=== PATIENT | female | born 1945 | race Hispanic/Latino ===

== ENCOUNTER 2019-01-15 06:58 | Observation (INO) | payer OTHER, MEDICARE ==
[2019-01-09 13:44] LABS: BASOPHILS % (AUTO) 1.2 % (0.0-5.0); EOSINOPHILS % (AUTO) 5.4 % (0.0-8.0); HEMATOCRIT 31.3 % (36-48); LYMPHOCYTES % (AUTO) 23.2 % (21.0-51.0); MEAN CORPUSCULAR HEMOGLOBIN 29.1 pg (27.0-33.0); MEAN CORPUSCULAR HGB CONC 33.6 g/dL (32.0-36.0); MEAN CORPUSCULAR VOLUME 86.7 fL (79-99); MONOCYTES % (AUTO) 8.8 % (3.0-13.0); NEUTROPHILS % (AUTO) 61.4 % (40.0-77.0); NUCLEATED RED BLOOD CELLS 0.1 % (0.0-0.19); PLATELET COUNT (AUTO) 174 K/uL (130-400); RED BLOOD CELL COUNT(AUTO) 3.61 MIL/uL (4.00-5.50); RED CELL DISTRIBUTION WIDTH 13.9 % (11.0-15.5); WHITE BLOOD COUNT (AUTO) 5.7 K/uL (4.8-10.8)
[2019-01-09 13:52] LABS: CREATININE 1.1 mg/dL (0.5-1.5); POTASSIUM 5.2 mmol/L (3.5-5.1)
[2019-01-09 14:02] LABS: INR 1.01 (0.85-1.15); PARTIAL THROMBOPLASTIN TIME 26.7 SEC (26.3-35.5); PROTHROMBIN TIME 10.6 SEC (9.6-11.6)
[2019-01-09 14:20] VITALS: BP 142/62
--- NOTE | 2019-01-09 14:57 | NUR ---
SPOKE WITH MARY KAY ROSE REP AND IS AWARE OF ICD DUAL ON 01-13-19 Addendum: 01/14/19 at 1746 by LELO PETTY RN RN WRONG PT. INFO
[2019-01-10] MEDS: LACTATED RINGERS 1000ML 1,000 ML IV SCH (21:45)
--- NOTE | 2019-01-14 15:12 | NUR ---
labs abnormal labs faxed to dr. whatley per there request, message left with Meggan his nurse, awaiting for further orders
[~2019-01-15] VITALS: Ht 151.1 cm; Wt 84.3 kg
[2019-01-15] VITALS (23 sets, daily range): BP systolic 124–152; BP diastolic 56–93
[~2019-01-15 06:58] MED LIST: CEFAZOLIN SODIUM 1 GM VIAL IVP SCH; SODIUM CHLORIDE 0.9% IV SCH; TRANEXAMIC ACID IV SCH
[2019-01-15] MEDS: CEFAZOLIN SODIUM 1 GM VIAL ONE ×2 (08:28→10:00)
[2019-01-15] MEDS: LACTATED RINGERS 1000ML 1,000 ML IV SCH ×2 (08:34→12:00)
--- NOTE | 2019-01-15 09:00 | NUR ---
SKIN RIGHT INDEX FINGER NOTED WITH SMALL BANDAID, PT STATES HAS SMALLCUT, " CUT HERSELF COOKING". NO REDNESS OR DRAINAGE TO SITE
[2019-01-15] MEDS ORDERED: FURO40TA5 PO (09:06)
[2019-01-15] MEDS ORDERED: LEVO5TAB13 PO (09:06)
[2019-01-15] MEDS ORDERED: ZOLP10TA6 PO (09:06)
[2019-01-15] MEDS ORDERED: GABA-529 PO (09:06)
[2019-01-15] MEDS ORDERED: DULO30CA52 PO (09:06)
[2019-01-15] MEDS ORDERED: LINA5TAB PO (09:06)
[2019-01-15] MEDS ORDERED: LOSA100T58 PO (09:06)
[2019-01-15] MEDS ORDERED: METF-444 PO (09:06)
[2019-01-15] MEDS ORDERED: PIOG15TA66 PO (09:06)
[2019-01-15] MEDS ORDERED: ATOR40TA71 PO (09:06)
[2019-01-15] MEDS ORDERED: METO-408 PO (09:06)
[2019-01-15] MEDS ORDERED: LUBI24CA2 PO (09:06)
--- NOTE | 2019-01-15 09:20 | NUR ---
SKIN LEFT KNEE WHIPPED WITH 2% CHLORHEXIDINE GLUCONATE CLOTH
[2019-01-15] MEDS ORDERED: VANCOMYCIN HCL 1 GM VIAL ONE (09:26)
[2019-01-15] MEDS ORDERED: TRANEXAMIC ACID 1000MG/10ML IV ONE ×2 (09:26→09:27)
[2019-01-15] MEDS ORDERED: DEXAMETHASONE SOD PHOSPHATE 10MG/ML 1ML VIAL ONE (09:30)
[2019-01-15] MEDS ORDERED: LIDOCAINE PF 2% 5ML ABBOJECT ONE (09:30)
[2019-01-15] MEDS ORDERED: ONDANSETRON HCL 4 MG/2 ML VIAL ONE (09:30)
[2019-01-15] MEDS ORDERED: PROPOFOL 10 MG/ML 20ML VIAL IV ONE (09:30)
[2019-01-15] MEDS ORDERED: MIDAZOLAM HCL 1 MG/ML 2ML VIAL ONE (09:31)
[2019-01-15] MEDS ORDERED: FENTANYL CITRATE PF 50 MCG/1 ML 2ML VIAL ONE (09:31)
[2019-01-15] MEDS ORDERED: ROCURONIUM 10MG/1ML SYR 10 MG/ML ML ONE (09:31)
[2019-01-15] MEDS ORDERED: ROPIVACAINE 0.5% 5MG/ML 30ML IJ ONE (09:38)
[2019-01-15] MEDS ORDERED: GLYCOPYRROLATE 1 MG/5 ML SYRINGE ONE ×2 (10:04→11:46)
[2019-01-15] MEDS ORDERED: NEOSTIGMINE 5MG/5ML SYR IV ONE (11:46)
[2019-01-15] MEDS ORDERED: EPHEDRINE SULFATE 50 MG/ML AMPULE ONE (11:53)
[2019-01-15] MEDS: ACETAMINOPHEN EXTRA STRENGTH 500 MG TABLET PO SCH ×2 (12:00→22:17)
[2019-01-15] MEDS ORDERED: TRAMADOL HCL 50 MG TABLET PO PRN (12:00)
[2019-01-15] MEDS ORDERED: ONDANSETRON HCL 4 MG/2 ML VIAL IVP PRN (12:00)
[2019-01-15] MEDS ORDERED: OXYCODONE HCL 5 MG TAB PO PRN ×2 (12:00)
[2019-01-15] MEDS ORDERED: MORPHINE SULFATE 4 MG/1ML SYG IVP PRN (12:00)
[2019-01-15] MEDS ORDERED: KETOROLAC TROMETHAMINE 15MG/ML IV PRN (12:00)
[2019-01-15] MEDS: GABAPENTIN 100 MG CAPSULE PO SCH ×2 (13:54→22:15)
[2019-01-15] MEDS: CEFAZOLIN SODIUM 1 GM VIAL IVP SCH (17:49)
--- NOTE | 2019-01-15 18:15 | NUR ---
INITIAL- PT WANTS TO GO TO [facility] MET W PT ALONE, AAOX3, STATES LIVES ALONE, HAS PROVIDER SERVICE FOR 3.5 HR MON THROUGH FIRDA AND 3 HRS ON THE W/ENDS, STATES HAS ANOTHER PERSON THAT HELPS IN THE HOUSE FORM TIME TO TIME . A FRIEND, HAS EQUIPMENT, HAS WALKER FROM [facility] STATES [place] THEN AND WANTS TO GO BACK TO [facility] TOO LATE TO CALL DR. RENEE OFFICE TO CONFIRM OR GET ORDER- WILL HAVE CM FOLLOW UP IN AM. CHART TAGGED, PRIMARY RN AWARE Addendum: 01/15/19 at 2213 by CHRISS MCMANUS RN CM Amended: Links added.
[2019-01-15] MEDS ORDERED: CETIRIZINE HCL 5 MG TABLET PO SCH (21:00)
[2019-01-15] MEDS: LUBIPROSTONE 24 MCG CAP PO SCH (21:00)
[2019-01-15] MEDS ORDERED: ZOLPIDEM TARTRATE 5 MG TAB PO SCH (21:00)
[2019-01-15] MEDS: METOPROLOL TARTRATE 25 MG TAB PO SCH (22:14)
[2019-01-15] MEDS: METFORMIN HCL 500 MG TABLET PO SCH (22:14)
[2019-01-15] MEDS: FAMOTIDINE 20MG TAB 20 MG TAB PO SCH (22:14)
[2019-01-15] MEDS: ASPIRIN 81 MG EC TAB PO SCH (22:16)
[2019-01-15] MEDS: SODIUM CHLORIDE 0.9% 1000ML 1,000 ML IV SCH (22:21)
[2019-01-16] VITALS: BP 121/61
[2019-01-16] MEDS: CEFAZOLIN SODIUM 1 GM VIAL IVP SCH (01:13)
[2019-01-16 04:00] VITALS: BP 107/57
[2019-01-16 04:37] LABS: HEMATOCRIT 23.5 % (36-48); MEAN CORPUSCULAR HEMOGLOBIN 29.3 pg (27.0-33.0); MEAN CORPUSCULAR HGB CONC 34.3 g/dL (32.0-36.0); MEAN CORPUSCULAR VOLUME 85.3 fL (79-99); PLATELET COUNT (AUTO) 144 K/uL (130-400); RED BLOOD CELL COUNT(AUTO) 2.75 MIL/uL (4.00-5.50); RED CELL DISTRIBUTION WIDTH 13.5 % (11.0-15.5); WHITE BLOOD COUNT (AUTO) 7.8 K/uL (4.8-10.8)
[2019-01-16 05:04] LABS: CREATININE 1.1 mg/dL (0.5-1.5); POTASSIUM 4.9 mmol/L (3.5-5.1)
[2019-01-16] MEDS: ACETAMINOPHEN EXTRA STRENGTH 500 MG TABLET PO SCH ×2 (05:34→12:31)
[2019-01-16 07:30] VITALS: BP 109/57
[2019-01-16] MEDS: SODIUM CHLORIDE 0.9% 1000ML 1,000 ML IV SCH (07:50)
[2019-01-16] MEDS ORDERED: POLYETHYLENE GLYCOL 3350 17 GM POWD.PACK PO SCH (09:00)
[2019-01-16] MEDS ORDERED: DULOXETINE HCL 30 MG CAP PO SCH (09:00)
[2019-01-16] MEDS ORDERED: LINAGLIPTIN 5 MG TABLET PO SCH (09:00)
[2019-01-16] MEDS ORDERED: FUROSEMIDE 40 MG TABLET PO SCH (09:00)
[2019-01-16] MEDS ORDERED: LOSARTAN 100 MG TABLET PO SCH (09:00)
[2019-01-16] MEDS: METOPROLOL TARTRATE 25 MG TAB PO SCH (09:00)
[2019-01-16] MEDS ORDERED: PIOGLITAZONE HCL 15 MG TAB PO SCH (09:00)
--- NOTE | 2019-01-16 10:00 | NUR ---
cm note referral faxed to [facility] and spoke to shaun and will come and eval. also spoke to [facility], spoke to jealyn, regarding need for approval today. states will work on referral. and let cm know.
[2019-01-16] MEDS: LUBIPROSTONE 24 MCG CAP PO SCH (10:05)
[2019-01-16] MEDS: FAMOTIDINE 20MG TAB 20 MG TAB PO SCH (10:05)
[2019-01-16] MEDS: METFORMIN HCL 500 MG TABLET PO SCH (10:06)
[2019-01-16] MEDS: GABAPENTIN 100 MG CAPSULE PO SCH ×2 (10:06→14:00)
[2019-01-16] MEDS: ASPIRIN 81 MG EC TAB PO SCH (10:06)
[2019-01-16 11:16] VITALS: BP 128/58
--- NOTE | 2019-01-16 14:37 | NUR ---
cm note spoke to shaun with [facility] and states pt is accepted. and updated primary nurse Ni. of acceptance.
--- NOTE | 2019-01-16 16:05 | NUR ---
DISCHARGE DISCHARGE TEACHING PROVIDED TO PATIENT REGARDING RX (TYLENOL #5), CONTINUE HOME MEDICATIONS, JR DRESSING CARE AND NURSE TO REMOVE DRESSING IN 4 DAYS, SCHEDULED F/U WITH DR. RENEE, ACTIVITY (WBAT WITH WALKER). PATIENT VERBALIZED UNDERSTANDING OF DISCHARGE TEACHING. REMOVED 20G IV FROM RIGHT HAND, CATHETER TIP INTACT. LEFT KNEE JR DRESSING, FLASHING GREEN AT TIME OF DISCHARGE. BILATERAL TEDS IN PLACE AT TIME OF DISCHARGE. NURSE REPORT GIVEN TO NURSE MON OF [facility] [phone]. INFORMED NURSE MON THAT DR. RENEE ORDERED TO REMOVE JR DRESSING IN 4 DAYS, DISCHARGE ACTIVITY WBAT WITH WALKER, SCHEDULED F/U APPT WITH DR. RENEE. MEDICATIONS RECONCILIATION FAXED TO [facility] [phone]. ORIGINAL RX FOR TYLENOL #3 PLACED IN PATIENT CHART COPY FOLDER. NURSE ELIESER STATED SHE WOULD SEND [facility] TRANSPORT VAN TO [employer] PATIENT IN ROOM 431.
[2019-01-16 16:18] VITALS: BP 114/55
[2019-01-18] MEDS ORDERED: BISACODYL 10 MG SUPP.RECT RC PRN (12:00)
== END 2019-01-16 16:45 ==
LOC: DAH 06:58 → INTOOBSV 06:59 → DAH 06:59 → 4AH 06:59
PROVIDERS: ADMIT Orthopaedic Surgery; ATTEND Orthopaedic Surgery
DX: M17.12 Unilateral primary osteoarthritis, left knee (principal); S80.01XA Contusion of right knee, initial encounter; E11.9 Type 2 diabetes mellitus without complications; I10 Essential (primary) hypertension; E78.00 Pure hypercholesterolemia, unspecified; Z96.651 Presence of right artificial knee joint; W19.XXXA Unspecified fall, initial encounter; Y93.89 Activity, other specified; Y92.89 Other specified places as the place of occurrence of the external cause
CPT/HCPCS: 27447; 36415 ×2; 80048 ×2; 82948 ×6; 85025; 85027; 85610; 85730; 87641; 88305; 88311; 93005; 96374; 96376; 97039; 97116 ×2; 97161; 97530 ×2; A4215; A4221; A4222; A4223; A4248; A4450; A4649 ×6; A4663; A5120; A6223; A6260; C1776; G0378 ×4; G8978; G8979; G8980; G8981; G8982; G8983; J0690 ×3; J1100; J2001; J2250; J2405; J2704; J2710; J2795; J3010; J3370; J3490 ×5; J7030 ×2; J7120

== ENCOUNTER → 2021-08-02 | Outpatient (CLI) | payer MEDICARE ==
[~2021-08-02] MED LIST changes: +ATOR40TA71 PO; -CEFAZOLIN SODIUM 1 GM VIAL IVP SCH; +DULO30CA52 PO; +FURO40TA5 PO; +GABA-529 PO; +LEVO5TAB13 PO; +LINA5TAB PO; +LOSA100T58 PO; +LUBI24CA2 PO; +METF-444 PO; +METO-408 PO; +PIOG15TA66 PO; -SODIUM CHLORIDE 0.9% IV SCH; -TRANEXAMIC ACID IV SCH; +ZOLP10TA6 PO
[2021-08-02 12:26] LABS: ALBUMIN 3.7 g/dL (3.5-5.0); BILIRUBIN,DIRECT 0.1 mg/dL (0.0-0.3); BILIRUBIN,TOTAL 0.6 mg/dL (0.2-1.0); TOTAL PROTEIN, SERUM 7.1 g/dL (6.0-8.3)
== END ==
LOC: LAB 09:04
PROVIDERS: ATTEND Internal Medicine Cardiovascular Disease
DX: E78.5 Hyperlipidemia, unspecified (principal)
CPT/HCPCS: 36415; 80061; 80076

== ENCOUNTER → 2021-08-17 | Outpatient (CLI) | payer MEDICARE | END | disposition home or self-care (01) | LOC: RAH 16:33 | PROVIDERS: ATTEND Internal Medicine | DX: M47.816 Spondylosis without myelopathy or radiculopathy, lumbar region (principal); M48.061 Spinal stenosis, lumbar region without neurogenic claudication; M48.07 Spinal stenosis, lumbosacral region; M51.36 Other intervertebral disc degeneration, lumbar region | CPT/HCPCS: 72100 ==

== ENCOUNTER → 2023-11-11 | Outpatient (CLI) | payer OTHER, MEDICARE ==
[~2023-11-11] MED LIST changes: -LOSA100T58 PO; +LOSA100T59 PO
== END | disposition home or self-care (01) ==
LOC: SHCH 07:50
PROVIDERS: ATTEND Internal Medicine Cardiovascular Disease
DX: I08.3 Combined rheumatic disorders of mitral, aortic and tricuspid valves (principal); R06.00 Dyspnea, unspecified; I10 Essential (primary) hypertension; E11.9 Type 2 diabetes mellitus without complications
CPT/HCPCS: 93306

== ENCOUNTER → 2023-11-18 | Outpatient (CLI) | payer OTHER, MEDICARE | END | disposition home or self-care (01) | LOC: OIH 12:38 | PROVIDERS: ATTEND Internal Medicine | DX: M47.816 Spondylosis without myelopathy or radiculopathy, lumbar region (principal); M48.02 Spinal stenosis, cervical region | CPT/HCPCS: 72100 ==

== ENCOUNTER → 2024-08-27 | Outpatient (CLI) | payer OTHER, MEDICAID ==
[~2024-08-27] MED LIST changes: -LUBI24CA2 PO; +LUBI24CA40 PO
--- NOTE | 2024-08-27 10:51 | HMCIMG ---
CT ABDOMEN/PELVIS W/O CONTRAST HISTORY: Renal stone COMPARISON: None TECHNIQUE: Multiple sequential axial images of the abdomen and pelvis were obtained from the dome of the diaphragm through symphysis pubis. Patient was not given contrast through intravenous route. Oral contrast was not given. FINDINGS: No pleural effusion is seen bilaterally. There is no evidence of parenchymal disease or pulmonary nodule of the visualized lower lungs. Degenerative changes of the thoracolumbar spine are present. Endplate degenerative/destructive changes are noted of L2-3 level may be related to osteomyelitis with discitis. No definite adjacent soft tissue mass or fluid collection is seen. Mild central canal narrowing is seen at this level. The heart is not enlarged. Liver measures 15 cm. Gallbladder is distended. The liver, spleen, adrenal glands and pancreas are unremarkable. There is no evidence of hydronephrosis bilaterally. No evidence of renal stone is seen. Fecal material is seen in the colon. There are normal size retroperitoneal and mesenteric lymph nodes. No ascites is seen. No CT evidence of acute appendicitis is seen. Clinical correlation is recommended. Uterus is enlarged may be related to fibroid uterus. Pelvic sidewalls are symmetric bilaterally. Bladder is poorly distended. IMPRESSION: 1. Endplate degenerative/destructive changes are noted of L2-3 level may be related to osteomyelitis with discitis. No definite adjacent soft tissue mass or fluid collection is seen. Mild central canal narrowing is seen at this level. CT was performed with one or more following dose reduction techniques: automated exposure control, adjustment of the mA and kv according to patient's size, or use of a iterative reconstruction technique.
== END | disposition home or self-care (01) ==
LOC: RAH 10:08
PROVIDERS: ATTEND Internal Medicine
DX: N20.0 Calculus of kidney (principal); N85.2 Hypertrophy of uterus; K82.8 Other specified diseases of gallbladder; N32.89 Other specified disorders of bladder; R19.5 Other fecal abnormalities; M47.815 Spondylosis without myelopathy or radiculopathy, thoracolumbar region; M48.061 Spinal stenosis, lumbar region without neurogenic claudication
CPT/HCPCS: 74176